=== PATIENT | male | born 1995 | race Caucasian/White ===

== ENCOUNTER 2021-01-17 04:05 | Emergency (ER) | payer OTHER, SELFPAY ==
[2021-01-17] VITALS (8 sets, daily range): BP systolic 125–144; BP diastolic 66–107; PULSE 73–104; RESP 14–16; TEMP 36.5; O2SAT 96–100
--- NOTE | 2021-01-17 04:11 | ED.GENADULT ---
HPI - General Adult General Chief complaint: Asthma Stated complaint: asthma attack Time Seen by Provider: 01/17/21 04:07 History of Present Illness HPI narrative: Patient is a 25-year-old gentleman who presents to the emergency department with chief complaint of shortness of breath. Patient states his symptoms began about 45 minutes prior to arrival. The patient reports he has prior history of asthma and hospitalizations as a child the patient reports that he has been using albuterol inhaler but is currently not on a controller medication. The patient reports that 45 minutes prior to arrival in the emergency department the patient started having shortness of breath he started wheezing became extremely tight. Patient states that he ran out of his albuterol that he reports is improved. Improving. Patient denies fever denies cough denies runny nose sore throat or other infectious symptoms. Patient reports this is the normal time of year where he has a flare of his asthma. Related Data Allergies Allergy/AdvReac Type Severity Reaction Status Date / Time No Known Allergies Allergy Verified 01/17/21 04:15 Review of Systems Review of Systems: Narrative: A 10 system review of systems was completed on the patient and is negative except for what is stated in the HPI. Nursing and ancillary documentation was reviewed. PMFSH Comments Past medical history significant for asthma Social history the patient denies smoking Exam Narrative: Exam Narrative: GENERAL: Well-appearing, well-nourished, and in no acute distress. HEAD: Normocephalic, atraumatic. EYES: PERRLA and EOMI. ENT: Nares clear, no rhinorrhea or epistaxis. Mucous membranes moist. NECK: Supple. CHEST: There is wheezing present bilaterally. There is mild respiratory distress HEART: Regular rate and rhythm. No murmur heard. Normal peripheral pulses. ABDOMEN: Soft, nontender, nondistended, normal active bowel sounds. EXTREMITIES: Normal range of motion. No edema. SKIN: Warm, dry, no rash. NEURO: No focal deficits. Alert and oriented x3. PSYCH: Normal mood and affect. Course Vital Signs Vital signs: Vital Signs Temperature 36.5 C 01/17/21 04:08 Pulse Rate 81 01/17/21 04:08 Respiratory Rate 16 01/17/21 04:08 Blood Pressure 144/107 H 01/17/21 04:08 Pulse Oximetry 97 01/17/21 04:08 Temperature 36.5 C 01/17/21 04:08 Pulse Rate 81 01/17/21 04:48 Respiratory Rate 16 01/17/21 04:48 Blood Pressure 144/107 H 01/17/21 04:08 Pulse Oximetry 96 01/17/21 04:17 Medical Decision Making Vital Signs Vital Signs: Vital Signs Temperature 36.5 C 01/17/21 04:08 Pulse Rate 81 01/17/21 04:08 Respiratory Rate 16 01/17/21 04:08 Blood Pressure 144/107 H 01/17/21 04:08 Pulse Oximetry 97 01/17/21 04:08 Temperature 36.5 C 01/17/21 04:08 Pulse Rate 81 01/17/21 04:48 Respiratory Rate 16 01/17/21 04:48 Blood Pressure 144/107 H 01/17/21 04:08 Pulse Oximetry 96 01/17/21 04:17 Discharge Plan Discharge Clinical Impression: Asthma with acute exacerbation Patient Disposition: Home, Self-Care Condition: Stable Instructions: Antibiotic Form, Asthma (ED) Prescriptions: New albuterol sulfate 90 mcg/actuation HFA aerosol inhaler 2 puff inhalation QID PRN (Reason: shortness of breath or wheezing) Qty: 8.5 RF: 0 prednisone 20 mg tablet 60 mg PO DAILY 5 Days Qty: 15 RF: 0 Follow-up/Referrals: PHYSICIAN,EMBEDDED [employer] DEVELOPER [Primary Care Provider] - Clem Bangura MD [Physician] - 1 Week Time of Disposition: 05:38
[2021-01-17] MEDS: methylPREDNISolone SOD SUCC 125 MG VIAL IV PUSH (04:21)
[2021-01-17] MEDS: IPRATROPIUM BR 0.02% INH SOLN 0.5 MG/2.5 ML VIAL INHALATION ×2 (04:23→04:40)
[2021-01-17] MEDS: ALBUTEROL SULFATE NEB 2.5 MG/0.5 ML INH 5 MG INHALATION ×2 (04:23→04:40)
== END 2021-01-17 05:50 | disposition home or self-care (01) ==
PROVIDERS: Emergency Provider Emergency Medicine
DX: J45.901 Unspecified asthma with (acute) exacerbation (principal)
CPT/HCPCS: 94640; 96374; 99284; J2930